=== PATIENT | male | born 1995 | race Caucasian/White ===

== ENCOUNTER 2018-11-18 08:13 | Emergency (ER) | payer SELFPAY | END 2018-11-18 09:00 | disposition home or self-care (01) | LOC: SCSER 08:13 | DX: K60.0 Acute anal fissure (principal); F43.10 Post-traumatic stress disorder, unspecified; F17.210 Nicotine dependence, cigarettes, uncomplicated; M41.9 Scoliosis, unspecified | CPT/HCPCS: 99283 ==